=== PATIENT | female | born 1970 | race Caucasian/White ===

== ENCOUNTER 2016-12-07 08:47 | Inpatient (IN) | payer BC ==
[2016-11-15 13:11] LABS: BASO % 0.9 %; BASO ABS # 0.05 K/uL (0-0.2); COMPLETE YES; EOS % 3.3 %; HEMATOCRIT 41.1 % (37-47); IG% 0.2 %; LYMPH % 27.5 %; MEAN CELL VOLUME 86.5 fL (80-100); MEAN CORPUSCULAR HEMOGLOBIN 29.5 pg (25-34); MEAN CORPUSCULAR HGB CONC 34.1 g/dl (32-36); MEAN PLATELET VOLUME 10.1 fL (7.4-10.4); MONO % 6.1 %; PLATELET COUNT 209 K/uL (130-400); RED BLOOD COUNT 4.75 M/uL (4.2-5.4); WHITE BLOOD COUNT 5.45 K/uL (4.8-10.8)
[2016-11-15 13:26] LABS: URINE APPEARANCE CLEAR (CLEAR); URINE BILIRUBIN NEG (NEG); URINE COLOR YELLOW; URINE NITRITE NEG (NEG); URINE PH 5.5 (4.5-7.5); URINE SPECIFIC GRAVITY 1.006 (1.000-1.030); UROBILINOGEN NEG (NEG)
[2016-11-15 13:31] LABS: PREG INTERNAL NEGATIVE QC NEG CLEAR BACKGROUND; PREG INTERNAL POSITIVE QC POS CONTROL LINE
[2016-11-15 13:33] LABS: MANUAL MICROSCOPIC REQUIRED? NO; REVIEW REQ? NO
[2016-11-27 09:15] VITALS: BMI 36.0
--- NOTE | 2016-12-06 11:20 | HISTORY & PHYSICAL EXAMINATION ---
DATE OF ADMISSION: 12/07/2016 SUBJECTIVE CHIEF COMPLAINT: She presents with back pain and right leg radiculopathy. HISTORY OF PRESENT ILLNESS: Leny is a very pleasant 46-year-old female who complains of low back pain and right leg numbness and tingling. This has been going on for quite a while now. We have tried conservative treatment and physical therapy, which have failed. She has also had some spinal injections and ablations which have failed also. What bothers her the most is sitting for any length of time. She loses feeling in both of her legs, especially her right leg. She is to the point where she wants to get something done surgically. MEDICAL HISTORY: Negative for any significant disease. PAST SURGICAL HISTORY: She had a total hysterectomy in 2004, breast reduction in 1997. ALLERGIES TO MEDICATIONS: INCLUDE PENICILLIN, SULFA DRUGS AND KEFLEX. CURRENT MEDICATIONS: List includes Topamax and gabapentin. FAMILY MEDICAL HISTORY: Negative heart disease, diabetes, cancer, blood clots, PEs. SOCIAL HISTORY: She is , drinks 1-2 drinks a week. No tobacco use. Moderately active lifestyle. REVIEW OF SYSTEMS: Musculoskeletal positive for joint pain. All other review of systems were negative per the patient intake form. PHYSICAL EXAMINATION: CONSTITUTIONAL: Alert and oriented x3. She is 5 foot 5, 224 pounds. She is 46 years of age. PSYCHIATRIC: Mentation is normal and does not appear to be depression. HEAD, EYES, EARS, NOSE, AND THROAT: Examination is normal. RESPIRATORY: Equal and bilateral breath sounds. LUNGS: Clear to auscultation. GASTROINTESTINAL: Abdomen is soft, nontender, no organomegaly percussed or palpated. CARDIOVASCULAR EXAMINATION: Normal. NEUROLOGICAL: Neurologically intact. Strength is 5/5 in the lower extremities. Good sensation and motor ability in the lower extremities. INTEGUMENTARY: Skin integumentary is intact. MUSCULOSKELETAL: Decreased range of motion with flexion and extension of her lumbar spine, pain with percussion to the right and to the left of midline. Plan is anatomically located along the L5-S1 nerve root distribution. DIAGNOSTIC TESTS: Plain x-rays demonstrated severely degenerative disc disease L5-S1. All other segments appear to be spared. MRI demonstrated similar pathology with nerve root irritation at the L5-S1 level. ASSESSMENT AND DIAGNOSES: Degenerative change in the lumbar spine, discogenic issues at L5-S1. PLAN: At this time, we have offered her surgery. Surgery choice is posterior lumbar interbody fusion at L5-S1. We discussed the procedure, recovery times and risks as well. She is in full understanding and agreeable with that. We did provide her with a back brace for postop. Also provided her with pain medication after she is discharged from the hospital. We will follow her up in our office in approximately 10-14 days postop for incision evaluation, suture removal and evaluation.
[~2016-12-07] VITALS: Ht 165.1 cm; Wt 100.5 kg
[2016-12-07] VITALS (7 sets, daily range): BP systolic 100–120; BP diastolic 65–81; PULSE 64–81; TEMP 36.5–37; O2SAT 96–99; Ht 165.1 cm; Wt 100.5 kg
[~2016-12-07 08:47] MED LIST: ATROPINE SULFATE 0.1 MG/ML 5ML SYR IV PRN; CLINDAMYCIN 600 MG/54 ML D5W IV SCH; DICL50TA3 PO; EpHEDrine SULFATE INJ 50 MG/ML AMP IV PRN; FENTANYL CITRATE INJ 50 MCG/1 ML 2 ML VIAL IV PRN; HYDROmorphone INJ 1 MG/ML SYR IV PRN; LACTATED RINGER'S 1000ML 1,000 ML IV SCH; MAGN400T6 PO; ONDANSETRON INJ 2 MG/ML 2 ML VIAL IV PRN; SODIUM CHLORIDE 0.9% 1000ML 1,000 ML IV SCH; TOPI50TA16 PO; TRAM-10 PO
[2016-12-07] MEDS ORDERED: MIDAZOLAM HCL 1 MG/ML 2ML VIAL ONE (09:43)
[2016-12-07] MEDS ORDERED: ONDANSETRON INJ 2 MG/ML 2 ML VIAL ONE ×2 (09:43→12:25)
[2016-12-07] MEDS ORDERED: ROCURONIUM BROMIDE 10 MG/ML 5 ML VIAL ONE ×2 (09:43→12:04)
[2016-12-07] MEDS ORDERED: DEXAMETHASONE SOD INJ 4 MG/ML VIAL ONE (09:43)
[2016-12-07] MEDS ORDERED: GLYCOPYRROLATE INJ 0.2 MG/ML VIAL ONE (09:43)
[2016-12-07] MEDS ORDERED: LIDOCAINE HCL 2% 2 ML VIAL (20MG/ML) ONE (09:43)
[2016-12-07] MEDS ORDERED: PROPOFOL IV EMULSION 10 MG/ML 20 ML VIAL IV ONE (09:43)
[2016-12-07] MEDS ORDERED: NEOSTIGMINE METHYLSULFATE 5 MG/5 ML SYR ONE (09:43)
[2016-12-07] MEDS ORDERED: FENTANYL CITRATE INJ 50 MCG/1 ML 2 ML VIAL ONE ×2 (09:43→14:08)
[2016-12-07] MEDS ORDERED: CEFAZOLIN SOD 1 GM VIAL ONE (09:44)
[2016-12-07] MEDS ORDERED: SCOPOLAMINE 1.5 MG TDSY TD ONE (10:04)
[2016-12-07] MEDS ORDERED: NURSING VERBAL MED ORDER ONE (10:15)
[2016-12-07] MEDS ORDERED: GELATIN SPONGE SZ 100 ONE ×3 (10:59→12:38)
[2016-12-07] MEDS ORDERED: THROMBIN FOR SOLN 20000 UNIT KIT ONE ×2 (10:59→11:53)
[2016-12-07] MEDS ORDERED: BUPIVACAINE/EPINEPHRINE 0.5% MPF 1:200,000 30 ML VIAL ONE (10:59)
[2016-12-07] MEDS ORDERED: BACITRACIN 50000 UNIT VIAL ONE (11:00)
[2016-12-07] MEDS ORDERED: VANCOMYCIN HCL 1000MG/20ML VIAL ONE (11:00)
[2016-12-07] MEDS ORDERED: HYDROmorphone INJ 2 MG/ML SYR/VIAL ONE (11:07)
--- NOTE | 2016-12-07 11:10 | History & Physical Bridge Note ---
H&P Re-Evaluation Bridge Note: I have examined the patient, reviewed the History & Physical and in the interval since the performance of the History & Physical I have noted the following changes of clinical significance: No changes noted
[2016-12-07] MEDS ORDERED: METOCLOPRAMIDE HCL INJ 5 MG/ML 2 ML VIAL ONE (11:35)
[2016-12-07] MEDS ORDERED: DiphenhydrAMINE HCL 50 MG/ML VIAL ONE (12:25)
--- NOTE | 2016-12-07 13:44 | DIAGNOSTIC IMAGING REPORT ---
INTRAOPERATIVE RADIOGRAPH CLINICAL HISTORY: L5-S1 spinal fusion. Fluoroscopy time: 9 seconds. FINDINGS: A single spot fluoroscopic view of the lumbar spine is presented. There is evidence of discectomy at L5-S1 with laminectomy and posterior fusion at this level. Interpedicular screws are present at both levels. The orthopedic hardware appears intact. IMPRESSION: Intraoperative image from L5 -S1 spinal fusion as above. Electronically signed by: Bravo Corrales M.D. 12/07/2016 1:43 PM Dictated Date/Time: 12/07/2016 1:42 PM
[2016-12-07] MEDS ORDERED: SODIUM CHLORIDE 0.9% 1000ML 1,000 ML IV SCH (13:53)
--- NOTE | 2016-12-07 13:59 | [facility] Post Operative Brief Note ---
Immediate Operative Summary Operative Date Dec 07, 2016. Pre-Operative Diagnosis Degenerative change in the lumbar spine, discogenic issues at L5-S1 Post-Operative Diagnosis Same as pre-operative diagnosis Procedure(s) Performed L5-S1 Decompression, Posterior Spinal Fusion, Instrumentation, Interbody Fusion With Application of Interbody Cage at L5-S1 Surgeon Dr. Stanley Manjarrez Senior Instructional Designer Surgeon(s) Arnel Zhang PA-C Estimated Blood Loss 500ml Findings degenerative L5-S1 spinal segment Specimens None per surgeon Complication(s) None Disposition Recovery Room / PACU
[2016-12-07] MEDS ORDERED: ONDANSETRON INJ 2 MG/ML 2 ML VIAL IV PRN (14:00)
[2016-12-07] MEDS ORDERED: NALOXONE HCL 0.4 MG/1 ML VIAL/CARP IV PRN (14:00)
[2016-12-07] MEDS ORDERED: LORAZEPAM 1 MG TAB PO PRN (14:00)
[2016-12-07] MEDS ORDERED: ACETAMINOPHEN 325 MG TAB PO PRN (14:00)
[2016-12-07] MEDS ORDERED: METOCLOPRAMIDE HCL INJ 5 MG/ML 2 ML VIAL IV PRN (14:00)
[2016-12-07] MEDS ORDERED: MAGNESIUM HYDROXIDE SUSP 30 ML UDC PO PRN (14:00)
[2016-12-07] MEDS ORDERED: LORAZEPAM INJ 1 MG in SYRINGE 0 ML IV PRN (14:00)
[2016-12-07] MEDS ORDERED: PROMETHAZINE HCL INJ 12.5 MG in SODIUM CHLORIDE 0.9% 50ML 50 ML IV PRN (14:00)
[2016-12-07] MEDS ORDERED: LABETALOL HCL IV 5 MG/ML 20ML ONE (14:09)
[2016-12-07] MEDS ORDERED: HYDROmorphone HCL 0.5MG/ML 50 ML CASSETTE ONE (14:15)
--- NOTE | 2016-12-07 14:22 | OPERATIVE REPORT ---
DATE OF OPERATION: 12/07/2016 PREOPERATIVE DIAGNOSIS: Degenerative segment lumbar spine L5-S1. POSTOPERATIVE DIAGNOSIS: Same. PROCEDURE: Included a lumbar spine laminectomy, discectomy at L5-S1, posterolateral interbody fusion L5-S1, posterolateral fusion L5-S1, complete discectomy L5-S1 and segmental pedicle screw instrumentation L5-S1. SURGEON: Dr. Manjarrez. CHAPLAIN: Arnel Zhang PA-C. COMPLICATIONS: Zero. BLOOD LOSS: 500 mL estimate. OPERATION AND FINDINGS: PROCEDURE: The patient was taken to the operating room, a general intubated anesthetic provided to the patient, placed prone, scrubbed, prepped, draped sterile. We commenced with surgery. We made a skin incision from 4 to the S2, S3 segments. We dissected the soft tissue down to the spinous processes to be back of the lamina. We got out over the transverse processes of L5 and the sacral ala, put in a deep self-retaining retractor. We verified the positioning with C-arm imaging. We commenced with surgery on the decompression aspect, essentially a complete laminectomy at 5, and partial of the sacrum. Did good foraminotomies, partial facetectomies. I was then able to safely get pedicle screws in the sacrum, 5 bilaterally, left and right. They were by the [place]. We then were able to retract the dura over a medial direction on both sides and get bilateral cages placed, packed with bone allograft. I first did a complete discectomy left and right using pituitaries curettes really cleaning out the disc interspace. Interspace was also then packed with the patient's own bone for autograft. We selected the implant, placed this into the L5-S1 interval. We were pleased with the church of disc height. We locked down the pedicle screw construct. We irrigated and closed in layers over Hemovac drain and ana on the skin, sterile dressing was applied. The patient returned to recovery room satisfactory stable condition. There were no apparent complications with the procedure. Sponge and needle count correct at the close. I attest to the content of the Intraoperative Record and any orders documented therein. Any exceptio ns are noted below.
--- NOTE | 2016-12-07 14:48 | Anesthesiology Progress Note ---
Anesthesia Post Op Note Date & Time Dec 07, 2016 at 14:48 Vital Signs Pain Intensity: 4 Vital Signs Past 12 Hours Date Time Temp Pulse Resp B/P Pulse Ox O2 Delivery O2 Flow Rate FiO2 12/07/16 14:40 60 16 115/72 98 Nasal Cannula 3 12/07/16 14:30 59 16 110/68 98 Mask 5 12/07/16 14:20 70 16 129/69 100 Mask 10 12/07/16 14:10 70 16 133/60 100 Mask 10 12/07/16 14:04 36.0 76 16 120/85 99 Mask 10 12/07/16 09:10 36.8 80 18 120/81 97 Room Air Notes Mental Status: alert / awake / arousable, participated in evaluation Pt Amnestic to Procedure: Yes Nausea / Vomiting: adequately controlled Pain: adequately controlled Airway Patency, RR, SpO2: stable & adequate BP & HR: stable & adequate Hydration State: stable & adequate Anesthetic Complications: no major complications apparent
[2016-12-07] MEDS: HYDROmorphone HCL 0.5MG/ML 50 ML CASSETTE IV PRN ×2 (15:58→23:13)
[2016-12-07] MEDS: CHECK SCOPOLAMINE PATCH PLACEMENT SCH (16:18)
[2016-12-07] MEDS: KETOROLAC TROMETHAMINE 30 MG/ML VIAL IV SCH ×2 (18:37→23:31)
[2016-12-07] MEDS: SODIUM CHLORIDE 0.9% 1000ML 1,000 ML IV SCH (18:40)
[2016-12-07] MEDS: DEXAMETHASONE INJ 10 MG in SYRINGE 0 ML IV SCH (18:42)
[2016-12-07] MEDS: CLINDAMYCIN IV 600 MG in DEXTROSE 5% ADD-VANTAGE 50ML 50 ML IV SCH (19:54)
[2016-12-07] MEDS: MAGNESIUM OXIDE 400 MG TAB PO SCH (21:12)
[2016-12-07] MEDS: TOPIRAMATE 25 MG TAB PO SCH (21:12)
[2016-12-08] VITALS (7 sets, daily range): BP systolic 90–120; BP diastolic 51–77; PULSE 72–90; TEMP 36.6–37; O2SAT 94–100
[2016-12-08] MEDS: SODIUM CHLORIDE 0.9% 1000ML 1,000 ML IV SCH (01:56)
[2016-12-08] MEDS: DEXAMETHASONE INJ 10 MG in SYRINGE 0 ML IV SCH ×3 (01:56→17:54)
[2016-12-08] MEDS: CLINDAMYCIN IV 600 MG in DEXTROSE 5% ADD-VANTAGE 50ML 50 ML IV SCH (03:52)
[2016-12-08] MEDS: KETOROLAC TROMETHAMINE 30 MG/ML VIAL IV SCH ×3 (05:57→17:54)
[2016-12-08] MEDS ORDERED: BISACODYL 10 MG SUPP PR PRN (06:00)
[2016-12-08] MEDS ORDERED: BISACODYL 5 MG TABEC PO PRN (06:00)
[2016-12-08] MEDS ORDERED: DC PCA SCH (06:00)
[2016-12-08] MEDS ORDERED: NURSING DECISION MEDICATION ORDER SCH (06:30)
--- NOTE | 2016-12-08 07:35 | Discharge Instructions ---
Discharge Instructions Admission Reason for Admission: Lumbar Intervertebral Disc Disorder W/Myelopathy Discharge Discharge Diagnosis / Problem: stenosis Discharge Goals Goal(s): Improve function Activity Recommendations Activity Limitations: as noted below Lifting Limitations: gradually increase as tolerated Exercise/Sports Limitations: until after follow-up appointment May Resume Sexual Activity: after follow-up appointment Shower/Bathe: keep incision dry Driving or Machine Use: . Instructions / Follow-Up Instructions / Follow-Up MEDICATIONS: Please take your prescriptions as instructed at your pre-op appointment. SPECIAL CARE: The following information is intended to answer some of the common questions and concerns regarding your surgery. Each patient is an individual and receives individual counselling throughout the course of treatment, from diagnosis to surgery all the way through recovery. What follows is not an exhaustive list, but should be a useful guide to some of the common questions and concerns patients have regarding their surgeries. These are not provided to keep you from calling us; rather, they give you something accurate and concrete to reference as you recover from your procedure. If you need us, we are available to you. As always, if you are not sure about something, call us at [phone]. MEDICAL EMERGENCIES: For these conditions, call 911 or go to your local hospital-based Emergency Department - not [facility] or equivalent. * Paralysis * Severe chest pain or difficulty breathing * Swelling or redness of either leg Spine procedures can be rather complex and though complications are rare, they do occur. In such cases, effective advice regarding emergency situations cannot always be addressed over the telephone. You may be referred to the emergency department for more effective management of your problem. Activity Limitations: It is important to give your body time to heal, so please limit your activities : * In general, don't do anything that moves your spine too much. You should avoid contact sports, twisting or heavy lifting while you recover. * 5-10 pounds is all you should attempt to lift. * You should not plan on driving for approximately 3 weeks and you should avoid traveling more than 30-45 minutes at a time. Longer trips should be broken down with walking breaks spaced appropriately. * Physical therapy is not usually required. * Walking and good posture practices will help you recover and regain your function. * Avoid straining or sudden changes in position. * In general, the goal is to take it easy and recover. Don't cause any new problems. Just relax. Showers: * Do not take a bath, use a Jacuzzi or hot tub or otherwise submerge your incision. * It is usually safe to take a shower 4-5 days after your surgery. * Your incision does not require any special creams or ointments. * Simply clean it with soap and water, dry and re-dress with a clean bandage afterwards. Incision: * Keep incision clean, dry and protected until your first follow-up appointment. * Some amount of drainage and redness is normal. Any drainage should be fairly clear and not have a foul odor. * If you feel anything is wrong or you have excessive drainage, please call us. * Your stitches and ana will be removed 10-14 days after your surgery. At the time of your first post-op visit. * Neck surgeries are typically closed with a suture underneath the skin. The steri-strips over the incision should be maintained until we see you in the office. Bracing: * You may be provided with a back or neck brace to encourage good posture and prevent injury. It will remind you not to do too much as you heal and will alert others to the fact that you have had a surgery. * Back braces may be removed for showers and when you are resting at home. They must be worn when you are walking around for any period of time or for travel. * For neck surgery, you will likely be provided with two cervical collars. The soft collar ([place] or foam rubber) is worn most commonly throughout the day and while sleeping. The plastic collar (provided at the hospital) is for showering/bathing. * Except while eating, collars should remain in place. More specifically, bracing is provided for a purpose and should be worn. * Please obtain your brace or collars prior to your operation and bring them to the hospital with you on the day of surgery. * You should also bring your collars to your post-op appointment with Dr. Manjarrez. You should always take good care of your body and practice healthy habits, especially following surgery. You should: * Follow your doctor's treatment plan * Sit and stand properly with good posture (ears over shoulders, shoulders over hips) Don't slouch * Learn to lift correctly * Exercise regularly (low-impact aerobic exercise is especially good, but check with your doctor first) * Generally, be up and walking for 5-10 minutes at a time at least 3-4 times per day from the day you get home * Increasing walking to tolerance until you can walk for 20-30 minutes at a time * Attain and maintain a healthy body weight * Eat healthy foods ( a well-balanced, low-fat diet rich in fruits and vegetables) and get enough calcium * Avoid excessive use of alcohol When to call our office - If you notice any of the following: * Increased pain not relieve by pain medicine * Fevers greater then 100 degrees F, chills or flu symptoms * Increased redness around incision * Drainage from the incision that is not clear * Any foul smelling drainage * Swelling or fluid collection beneath the skin Miscellaneous: * In the hospital, you may be given a walker or cane for support while walking. These are temporary needs and are intended to prevent injuries due to falls. You may discontinue them when you feel strong and steady enough on your feet. * Sleep in a comfortable position. We find that many patients find a lounge chair or recliner with several pillows to be beneficial in the early post-operative period. * The support stockings should be used for 7-10 days and may be discontinued when you are back to walking more and conducting usual household activities. No problem is insignificant. We are here to help you and get you well. Contact us at [phone]. Definitions: Foraminotomy: If part of the disc or a bone spur (osteophyte) is pressing on a nerve as it leaves the vertebra (through an exit called the foramen), a foraminotomy may be done. Otomy means "to make an opening." A foraminotomy is making the opening of the foramen larger, so the nerve can exit without being compressed. Laminotomy: Similar to the foraminotomy, a laminotomy makes a larger opening, this time in your bony plate protecting your spinal canal and spinal cord (the lamina). The lamina may be pressing on your nerve, so the surgeon may make more room for the nerves using a laminotomy. Laminectomy: Sometimes, a laminotomy is not sufficient. The surgeon may need to remove all or part of the lamina. This procedure is called a laminectomy. This can often be done at many levels without any harmful effects. Current Hospital Diet Patient's current hospital diet: Regular Diet Discharge Diet Recommended Diet: Regular Diet ( ) Fluid Restriction: 2000 ml (8 cups) Procedures Procedures Performed: L5-S1 Decompression, Posterior Spinal Fusion, Instrumentation, Interbody Fusion With Application of Interbody Cage at L5-S1 Pending Studies Studies pending at discharge: no Medical Emergencies . Who to Call and When: Medical Emergencies: If at any time you feel your situation is an emergency, please call 911 immediately. . Non-Emergent Contact Non-Emergency issues call your: Surgeon Call Non-Emergent contact if: your pain is worsening, you have any medication questions . "Provider Documentation" section prepared by Stanley Manjarrez. VTE Core Measure Inpt VTE Proph given/why not?: Treatment not indicated
--- NOTE | 2016-12-08 07:55 | PROGRESS NOTE ---
DATE: 12/08/2016 SUBJECTIVE: Minimal complaints of pain. Alert, oriented. No chest pain or shortness of breath. PHYSICAL EXAMINATION: 36.8 oral temperature. Neurologically intact. LABORATORY DATA: Hemoglobin 14. ASSESSMENT: Status post PLIF lumbar spine, posterior lumbar interbody fusion, doing well, short run. DISPOSITION: Includes instructions, precautions, and education. Up and ambulatory today. I anticipate discharge home tomorrow.
[2016-12-08] MEDS ORDERED: HYDROmorphone INJ 1 MG/ML SYR IV PRN (08:00)
[2016-12-08] MEDS ORDERED: OXYCODONE/ACETAMINOPHEN 5-325 TAB PO PRN (08:00)
[2016-12-08] MEDS ORDERED: HYDROmorphone INJ 2 MG/ML SYR/VIAL IV PRN (08:00)
[2016-12-08] MEDS: CHECK SCOPOLAMINE PATCH PLACEMENT SCH ×4 (08:13→23:39)
--- NOTE | 2016-12-08 08:25 | Anesthesiology Progress Note ---
Anesthesia Post Op Note Date & Time Dec 08, 2016 at 08:24 Vital Signs Pain Intensity: 2.0 Vital Signs Past 12 Hours Date Time Temp Pulse Resp B/P Pulse Ox O2 Delivery O2 Flow Rate FiO2 12/08/16 03:30 36.8 88 16 93/57 94 Room Air 12/08/16 00:00 Nasal Cannula 2.0 12/07/16 23:31 36.9 81 16 107/68 97 Nasal Cannula 2.0 Notes Mental Status: alert / awake / arousable, participated in evaluation Pt Amnestic to Procedure: Yes Nausea / Vomiting: adequately controlled Pain: adequately controlled Airway Patency, RR, SpO2: stable & adequate BP & HR: stable & adequate Hydration State: stable & adequate Anesthetic Complications: no major complications apparent
[2016-12-08] MEDS: OXYCODONE/ACETAMINOPHEN 5-325 TAB PO PRN ×3 (08:47→21:06)
[2016-12-08] MEDS: POLYETHYLENE (MIRALAX) 17 GM PACK PO SCH (08:47)
[2016-12-08] MEDS: MAGNESIUM OXIDE 400 MG TAB PO SCH ×2 (08:48→21:05)
[2016-12-08] MEDS: TOPIRAMATE 25 MG TAB PO SCH (21:07)
[2016-12-09] MEDS: DEXAMETHASONE INJ 10 MG in SYRINGE 0 ML IV SCH (02:10)
[2016-12-09] MEDS: OXYCODONE/ACETAMINOPHEN 5-325 TAB PO PRN ×2 (04:21→08:24)
[2016-12-09] MEDS: CHECK SCOPOLAMINE PATCH PLACEMENT SCH (08:04)
[2016-12-09] MEDS: POLYETHYLENE (MIRALAX) 17 GM PACK PO SCH (08:21)
[2016-12-09] MEDS: MAGNESIUM OXIDE 400 MG TAB PO SCH (08:22)
[2016-12-09 08:28] VITALS: BP 109/72; PULSE 71; TEMP 36.8; O2SAT 93
[2016-12-09] MEDS ORDERED: OXYC-57 PO (09:38)
[2016-12-09 09:41] VITALS: BP 109/72; PULSE 71; TEMP 36.8; O2SAT 93
--- NOTE | 2016-12-09 09:47 | DISCHARGE SUMMARY ---
DATE OF DISCHARGE: 12/09/2016. SUBJECTIVE: Minimal complaints of pain. Alert, oriented, no chest pain, shortness of breath, no neurological deficit. Pain controlled with Percocet. ASSESSMENT: Status post lumbar spinal fusion. DISPOSITION: Dressing change, pull drain today. Prescription for Percocet on her chart. Followup in 10 days. Instruction precautions provided on 2 different episodes. Will see her back in 10 days. She is off work.
== END 2016-12-09 11:40 | disposition home or self-care (01) | DRG 460 ==
LOC: ENRESERVTM → ENRESERVDT → C.ACU 08:47 → C.3E 11:00
PROVIDERS: ADMIT Orthopaedic Surgery Orthopaedic Surgery of the Spine; ATTEND Orthopaedic Surgery Orthopaedic Surgery of the Spine
PROC: 0SG3071 Fusion of Lumbosacral Joint with Autologous Tissue Substitute, Posterior Approach, Posterior Column, Open Approach (ICD-10-PCS; principal; 2016-12-07 10:00)
PROC: 0SG30AJ Fusion of Lumbosacral Joint with Interbody Fusion Device, Posterior Approach, Anterior Column, Open Approach (ICD-10-PCS; principal; 2016-12-07 10:00)
PROC: 0ST40ZZ Resection of Lumbosacral Disc, Open Approach (ICD-10-PCS; principal; 2016-12-07 10:00)
DX: M51.17 Intervertebral disc disorders with radiculopathy, lumbosacral region (principal); G43.909 Migraine, unspecified, not intractable, without status migrainosus; E66.9 Obesity, unspecified; Z68.37 Body mass index [BMI] 37.0-37.9, adult; Z79.83 Long term (current) use of bisphosphonates; Z79.891 Long term (current) use of opiate analgesic; Z79.899 Other long term (current) drug therapy

== ENCOUNTER 2018-01-24 15:58 | Emergency (ER) | payer BC ==
[~2018-01-24] VITALS: Ht 165.1 cm; Wt 110.2 kg
[~2018-01-24 15:58] MED LIST changes: -ATROPINE SULFATE 0.1 MG/ML 5ML SYR IV PRN; -CLINDAMYCIN 600 MG/54 ML D5W IV SCH; -EpHEDrine SULFATE INJ 50 MG/ML AMP IV PRN; -FENTANYL CITRATE INJ 50 MCG/1 ML 2 ML VIAL IV PRN; -HYDROmorphone INJ 1 MG/ML SYR IV PRN; -LACTATED RINGER'S 1000ML 1,000 ML IV SCH; -ONDANSETRON INJ 2 MG/ML 2 ML VIAL IV PRN; -SODIUM CHLORIDE 0.9% 1000ML 1,000 ML IV SCH
[2018-01-24 16:04] VITALS: TEMP 36.6
[2018-01-24 16:20] VITALS: Ht 165.1 cm; Wt 110.2 kg
[2018-01-24] MEDS ORDERED: METOCLOPRAMIDE HCL INJ 5 MG/ML 2 ML VIAL IV. STA (16:27)
[2018-01-24] MEDS ORDERED: SODIUM CHLORIDE 0.9% 1000ML 1,000 ML IV STA (16:27)
[2018-01-24] MEDS ORDERED: DiphenhydrAMINE HCL 50 MG/ML VIAL IV STA (16:27)
[2018-01-24] MEDS ORDERED: SODIUM CHLORIDE 0.9% 1000ML 1,000 ML IV SCH (16:27)
[2018-01-24 16:40] VITALS: O2SAT 97
[2018-01-24 16:40] LABS: BASO % 0.6 %; BASO ABS # 0.04 K/uL (0-0.2); EOS % 1.7 %; EOS ABS # 0.12 K/uL (0-0.5); HEMATOCRIT 41.5 % (37-47); HEMOGLOBIN 13.7 g/dL (12.0-16.0); IG# 0.01 K/uL (0.00-0.02); LYMPH % 32.9 %; LYMPH ABS # 2.33 K/uL (1.2-3.4); MEAN CELL VOLUME 85.4 fL (80-100); MEAN CORPUSCULAR HEMOGLOBIN 28.2 pg (25-34); MEAN PLATELET VOLUME 9.7 fL (7.4-10.4); MONO % 6.6 %; MONO ABS # 0.47 K/uL (0.11-0.59); NEUT % 58.1 %; NEUT ABS # 4.11 K/uL (1.4-6.5); PLATELET COUNT 202 K/uL (130-400); RED CELL DISTRIBUTION WIDTH CV 14.6 % (11.5-14.5); RED CELL DISTRIBUTION WIDTH SD 45.5 fL (36.4-46.3); WHITE BLOOD COUNT 7.08 K/uL (4.8-10.8)
[2018-01-24 16:43] LABS: ISTAT CREATININE 0.9 mg/dl (0.6-1.3); ISTAT IONIZED CALCIUM 1.12 mmol/l (1.12-1.32); ISTAT POTASSIUM 3.7 mEq/L (3.3-5.0)
--- NOTE | 2018-01-24 16:43 | DIAGNOSTIC IMAGING REPORT ---
CT SCAN OF THE BRAIN WITHOUT IV CONTRAST CLINICAL HISTORY: Strokelike symptoms. COMPARISON STUDY: MRI of the brain dated 05/08/2006. TECHNIQUE: Unenhanced axial CT scan of the brain is performed from the vertex to the skull base. A dose lowering technique was utilized adhering to the principles of ALARA. CT DOSE: 720.95 mGycm FINDINGS: Brain parenchyma: A small chronic lacunar infarct is noted in the left cerebellar hemisphere. There is no hemorrhage, mass effect, or evidence of acute territorial ischemia by CT criteria. [place]-white matter is preserved. No extra-axial fluid collection is seen. Ventricles, sulci, cisterns: Normal in configuration. Intracranial vasculature: The visualized intracranial vasculature at the skull base is normal in appearance. Calvarium: Unremarkable. Sinuses and mastoids: The visualized paranasal sinuses are clear. The mastoid air cells are well pneumatized. Orbits: The bony orbits are grossly intact. IMPRESSION: 1. There is no hemorrhage, mass effect, or evidence of acute territorial ischemia by CT criteria. 2. A small chronic lacunar infarct is noted in the left cerebellar hemisphere. Electronically signed by: Bravo Corrales M.D. 01/24/2018 4:42 PM Dictated Date/Time: 01/24/2018 4:36 PM
[2018-01-24 16:49] LABS: INR 0.9 (0.9-1.1)
[2018-01-24 17:05] LABS: BLOOD UREA NITROGEN 15 mg/dl (7-18); CALCIUM 8.8 mg/dl (8.5-10.1); CARBON DIOXIDE 25 mmol/L (21-32); CREATININE 0.86 mg/dl (0.60-1.20); GLUCOSE 83 mg/dl (70-99); POTASSIUM 3.6 mmol/L (3.5-5.1); SODIUM 139 mmol/L (136-145)
[2018-01-24 17:10] LABS: CKMB 0.8 ng/ml (0.5-3.6)
--- NOTE | 2018-01-24 17:56 | EMERGENCY ROOM VISIT NOTE ---
History Report prepared by Skylar: Aj Yadav Under the Supervision of: Dr. Julio Hughes M.D. First contact with patient: 16:07 Chief Complaint: NEURO SYMPTOMS Stated Complaint: RT HAND UNABLE TO USE, RT SIDE NUMBNESS Nursing Triage Summary: Patient ambulatory to triage with a slow and limping gait, states "I was writing on a tablet around 1300, my right hand flipped over and I lost control of it. My right arm went numb. Then my right leg got really numb. They are both really heavy. Then I got a really bad headache and sleepy. My neck is bugging me a little bit too. It feels numb on the entire right side of my body. I feel like I can talk okay but I am struggling to make sense." PMH: Migraines, complex migraines. History of Present Illness The patient is a 47 year old white female with a past medical history of lumbar stenosis, back surgery, and breast reduction surgery who presents to the Emergency Room with concerns over sudden onset weakness in her right side that onset at 1315, 3 hours ago. The patient states that she was using her right hand to write at work when the hand "went limp and flopped over." The patient states that shortly after this occurred her right leg went numb as well. She also notes some "general issues trying to speak and think." The patient states that the weakness in her right side is worse now She can move the right arm and right leg, but it feels like "there are bags of sugar" on the extremities. She described an unusual irregularity in her vision as seeing "a dark halo around the outside" of her visual field, and she does have a headache. The patient did note that she had an episode of neuro symptoms 16 years ago secondary to a complicated migraine. Source of History: patient Onset: 3 hours ago Position: arm (right), leg (right) Quality: numbness, other (weakness) Timing: worsening, other (Sudden onset) Associated Symptoms: + headache Note: Vision irregularities Review of Systems See HPI for pertinent positives and negatives. A total of ten systems were reviewed and were otherwise negative. Past Medical & Surgical Medical Problems: (1) Lumbar stenosis Family History Diabetes mellitus Heart disease Social History Smoking Status: Never Smoker Housing Status: lives with family Occupation Status: employed Current/Historical Medications No Active Prescriptions or Reported Meds Allergies Coded Allergies: Cephalosporins (Verified Allergy, Severe, KEFLEX=SWELLING, 01/24/18) Penicillins (Verified Allergy, Severe, AMOXICILLIN=SWELLING, 01/24/18) SWELLING Physical Exam Vital Signs Date Time Temp Pulse Resp B/P (MAP) Pulse Ox O2 Delivery O2 Flow Rate FiO2 01/24/18 18:39 78 20 124/80 97 Room Air 01/24/18 18:03 145/83 01/24/18 17:31 122/89 01/24/18 17:30 89 17 96 Room Air 01/24/18 17:01 130/90 01/24/18 17:00 75 24 99 Room Air 01/24/18 16:55 80 16 150/99 97 Room Air 01/24/18 16:40 97 Room Air 01/24/18 16:22 81 01/24/18 16:04 36.6 74 20 137/84 98 Room Air Physical Exam GENERAL: Awake, alert, well-appearing, NAD HENT: Normocephalic, atraumatic. EYES: Normal conjunctiva. Sclera non-icteric. NECK: Supple. No nuchal rigidity. FROM. RESPIRATORY: CTAB, no rhonchi, wheezing, crackles CARDIAC: RRR, no MRG ABDOMEN: Soft, NTND, BS+ MSK: No chest wall TTP, no LE edema NEURO: CN 2-12 intact, 4/5 strength with flexion of the RUE and RLE, decreased sensation of the right face, no facial droop no dysmetria, no drift, good finger to nose, no sensory deficits. Finger count grossly normal. PERRL. SKIN: No rash or jaundice noted. Medical Decision & Procedures ER Provider Diagnostic Interpretation: Radiology results as stated below per my review and radiologist interpretation: CT SCAN OF THE BRAIN WITHOUT IV CONTRAST CLINICAL HISTORY: Strokelike symptoms. COMPARISON STUDY: MRI of the brain dated 05/08/2006. TECHNIQUE: Unenhanced axial CT scan of the brain is performed from the vertex to the skull base. A dose lowering technique was utilized adhering to the principles of ALARA. CT DOSE: 720.95 mGycm FINDINGS: Brain parenchyma: A small chronic lacunar infarct is noted in the left cerebellar hemisphere. There is no hemorrhage, mass effect, or evidence of acute territorial ischemia by CT criteria. [place]-white matter is preserved. No extra-axial fluid collection is seen. Ventricles, sulci, cisterns: Normal in configuration. Intracranial vasculature: The visualized intracranial vasculature at the skull base is normal in appearance. Calvarium: Unremarkable. Sinuses and mastoids: The visualized paranasal sinuses are clear. The mastoid air cells are well pneumatized. Orbits: The bony orbits are grossly intact. IMPRESSION: 1. There is no hemorrhage, mass effect, or evidence of acute territorial ischemia by CT criteria. 2. A small chronic lacunar infarct is noted in the left cerebellar hemisphere. Electronically signed by: Bravo Corrales M.D. 01/24/2018 4:42 PM Dictated Date/Time: 01/24/2018 4:36 PM Laboratory Results 01/24/18 16:20 Red Blood Count 4.86, Mean Corpuscular Volume 85.4, Mean Corpuscular Hemoglobin 28.2, Mean Corpuscular Hemoglobin Concent 33.0, Mean Platelet Volume 9.7, Neutrophils (%) (Auto) 58.1, Lymphocytes (%) (Auto) 32.9, Monocytes (%) (Auto) 6.6, Eosinophils (%) (Auto) 1.7, Basophils (%) (Auto) 0.6, Neutrophils # (Auto) 4.11, Lymphocytes # (Auto) 2.33, Monocytes # (Auto) 0.47, Eosinophils # (Auto) 0.12, Basophils # (Auto) 0.04 01/24/18 16:20 Test 01/24/18 16:20 01/24/18 16:32 01/24/18 16:46 White Blood Count 7.08 K/uL (4.8-10.8) Red Blood Count 4.86 M/uL (4.2-5.4) Hemoglobin 13.7 g/dL (12.0-16.0) Hematocrit 41.5 % (37-47) Mean Corpuscular Volume 85.4 fL (80-100) Mean Corpuscular Hemoglobin 28.2 pg (25-34) Mean Corpuscular Hemoglobin Concent 33.0 g/dl (32-36) Platelet Count 202 K/uL (130-400) Mean Platelet Volume 9.7 fL (7.4-10.4) Neutrophils (%) (Auto) 58.1 % Lymphocytes (%) (Auto) 32.9 % Monocytes (%) (Auto) 6.6 % Eosinophils (%) (Auto) 1.7 % Basophils (%) (Auto) 0.6 % Neutrophils # (Auto) 4.11 K/uL (1.4-6.5) Lymphocytes # (Auto) 2.33 K/uL (1.2-3.4) Monocytes # (Auto) 0.47 K/uL (0.11-0.59) Eosinophils # (Auto) 0.12 K/uL (0-0.5) Basophils # (Auto) 0.04 K/uL (0-0.2) RDW Standard Deviation 45.5 fL (36.4-46.3) RDW Coefficient of Variation 14.6 % (11.5-14.5) Immature Granulocyte % (Auto) 0.1 % Immature Granulocyte # (Auto) 0.01 K/uL (0.00-0.02) Prothrombin Time 9.3 SECONDS (9.0-12.0) Prothromb Time International Ratio 0.9 (0.9-1.1) Activated Partial Thromboplast Time 24.0 SECONDS (21.0-31.0) Partial Thromboplastin Ratio 0.9 Est Creatinine Clear Calc Drug Dose 99.9 ml/min Estimated GFR () 93.2 Estimated GFR (Non- 80.4 BUN/Creatinine Ratio 17.7 (10-20) Calcium Level 8.8 mg/dl (8.5-10.1) Magnesium Level 2.3 mg/dl (1.8-2.4) Total Creatine Kinase 68 U/L (26-192) Creatine Kinase MB 0.8 ng/ml (0.5-3.6) Creatine Kinase MB Ratio 1.2 (0-3.0) Troponin I < 0.015 ng/ml (0-0.045) Bedside Hemoglobin 13.6 g/dl (12.0-16.0) Bedside Hematocrit 40 % (37-47) Bedside Sodium 142 mEq/L (135-144) Bedside Potassium 3.7 mEq/L (3.3-5.0) Bedside Chloride 102 mEq/L (101-112) Bedside Total CO2 27 mEq/l (24-31) Anion Gap 17.0 mmol/L (16-25) Bedside Blood Urea Nitrogen 16 mg/dl (7-18) Bedside Creatinine 0.9 mg/dl (0.6-1.3) Bedside Glucose (other) 88 mg/dl (70-99) Bedside Ionized Calcium (Timothy) 1.12 mmol/l (1.12-1.32) Bedside Troponin I < 0.030 ng/ml (0-0.045) Bedside Prothrombin Time INR 1.0 (0.9-1.1) Laboratory results reviewed by me Medications Administered Medications (Trade) Dose Ordered Sig/Issa Route Start Time Stop Time Status Last Admin Dose Admin Metoclopramide HCl (Reglan Inj) 10 mg NOW STAT IV. 01/24/18 16:27 01/24/18 16:30 DC 01/24/18 17:17 10 MG Sodium Chloride 1,000 ml @ 999 mls/hr Q1H1M STAT IV 01/24/18 16:27 01/24/18 17:27 DC 01/24/18 17:17 999 MLS/HR Diphenhydramine HCl (Benadryl Inj) 25 mg NOW STAT IV 01/24/18 16:27 01/24/18 16:30 DC 01/24/18 17:17 25 MG ECG Per My Interpretation Indication: weakness Rate (beats per minute): 74 Rhythm: normal sinus Findings: other (No STS or TWI, normal intervals, normal axis) ED Course 1620: The patient was evaluated in room C7. A complete history and physical exam was performed. 1635: I discussed the case with Dr. Macario - [facility], he will call in and evaluate the patient via Telestroke. 1627: Ordered Benadryl 25 mg IV, Sodium Chloride 1000 mL @ 999 mL/hr IV, Reglan 10 mg IV, Sodium Chloride 1000 mL @ 50 mL/hr IV. 1711: I discussed the case again with Dr. Macario following his evaluation. He states no TPA as he discussed the risks/benefits with the patient and she declines treatment. This is likely a complex migraine and can go home once she feels better. 1826: I discussed the case with Dr. Otoniel Johsnon Neurolgoy. He will follow-up with the patient in the clinic. He also suggest starting the patient on Baby Aspirin. 1840: I reevaluated the patient. Discussed results and discharge instructions: She verbalized understanding and agreement. The patient is ready for discharge. Medical Decision The patient is a 47 year old white female with a past medical history of lumbar stenosis, back surgery, and breast reduction surgery who presents to the Emergency Room with concerns over sudden onset weakness in her right side that onset at 1315, 3 hours ago. Nursing notes reviewed. Ancillary studies and prior records reviewed. Differential diagnosis: Etiologies such as metabolic, infection, hypo/hyperglycemia, electrolyte abnormalities, cardiac sources, intracerebral event, toxicologic, neurologic, as well as others were entertained. Patient was seen and evaluated the bedside. Patient did have concerning signs and symptoms for possible stroke. However, this may be related to complicate migraine given that the patient has had a history of something similar but approximately 15 years ago. Patient is within a 3 hour window so a code stroke was called. Patient did have some deficits of the right upper and right lower extremity. Patient also had numbness in the right face and right upper and right lower extremity. Patient was not overtly hypotensive or hypertensive. Patient was a and O 3 with a GCS of 15. Patient did have blood work completed, CT brain, and telestroke was also notified. I did speak with the on-call telemetry stroke neurologist who agreed to further evaluate and treat patient. Patient's blood work is fairly unremarkable. CT brain did show a remote left lacunar cerebellar infarct which was old. Patient's no acute abnormalities. I did speak with the neurologist who said that they did have a discussion about administering TPA and the patient declined after discussion of risks and benefits. The neurologist agree this was likely related to a complicated migraine. Upon reassessment the patient was feeling much improved. I discussed that it would be important have her follow-up with a neurologist or headache specialist given her neurologic symptoms that coincided with her headache. The patient no longer had any deficits the patient had full use of her bilateral upper and lower extremities and had no numbness. I did discuss the patient's case with the on-call neurologist in order to obtain follow-up. Patient will be seen in clinic and an appointment will be arranged. He did recommend starting on a baby aspirin. This was conveyed to the patient. Patient was given strict follow-up, discharge, and return precautions. All questions were answered. Patient was deemed suitable for outpatient follow-up at this time. Patient agreed with the plan of care and was safely discharged home. Medication Reconcilliation Current Medication List: was personally reviewed by me Blood Pressure Screening Patient's blood pressure: Normal blood pressure Consults Time Called: 1631 Consulting Physician: Dr. Amirah Johnson [facility] Returned Call: [phone] I discussed the case again with Dr. Macario following his evaluation. He states no TPA as he discussed the risks/benefits with the patient and she declines treatment. This is likely a complex migraine and can go home once she feels better. Additional Consults: Time Called: 1820 Consulted Physician: Dr. Frederick - Neurology. Returned Call: [phone] Additional Comments: I discussed the case with Dr. Frederick - Neurology. He will follow-up with the patient in the clinic. He also suggest starting the patient on Baby Aspirin. Impression Primary Impression: Complicated migraine Critical Care I have personally spent greater than 50 minutes of critical care time in the direct management of this patient. This includes bedside care, interpretation of diagnostic studies, and testing, discussion with consultants, patient, and family members, and other required patient management activities. This 50 minutes is in excess of all separately billable procedures. Scribe Attestation The scribe's documentation has been prepared under my direction and personally reviewed by me in its entirety. I confirm that the note above accurately reflects all work, treatment, procedures, and medical decision making performed by me. Departure Information Dispostion Home / Self-Care Prescriptions No Active Prescriptions or Reported Meds Referrals Marina Wasserman M.D. (PCP) Arnel Frederick M.D. Patient Instructions ED Headache Migraine, My [facility] Additional Instructions Please return to the emergency department if you have worsening or recurrent symptoms not amenable to at-home treatment. Please call for a follow-up appointment with her primary care physician. Please take your medications as prescribed. If you have other concerns and/or complaints please feel free to also call your primary care physician's office or return the ED for further evaluation, management, and treatment. You were found to have an elevated blood pressure today (>120 sytolic or >90 diastolic). Per medicare guidelines, you need to follow up with this blood pressure screening with your Primary Care Physician (PCP). For a new PCP call [phone]. You may take 600 mg Ibuprofen every 6 hours as needed for pain with food for no more than 2 consecutive days. You may take tylenol 1000 mg every 6 hours as needed for pain. You may take motrin and tylenol separately or at the same time. Please start taking a baby aspirin. Please keep your follow-up appointment with your neurologist. Take your medications as prescribed. If taking an antibiotic consider taking a probiotic and/or eating yogurt, but at the least, please take with food as it can cause upset stomach. If culture results are not available at discharge, if they are positive for concern of infection, you will be informed of the results as soon as they are available. If you were seen between 11pm and 7AM all radiology reads will be re-read by our in house staff. If any major discrepancies are discovered, you will be notified. You have been examined and treated today on an emergency basis only. This is not a substitute for, or an effort to provide, complete comprehensive medical care. It is impossible to recognize and treat all injuries or illnesses in a single emergency department visit. It is therefore important that you follow up closely with [facility], your PCP, and/or your specialist(s). Call as soon as possible for an appointment. Thank you for your time and consideration. I look forward to speaking with you again soon. Please don't hesitate to call us if you have any questions. Stroke History Time Last Known Well 1315 today, 3 hours [employer] Stroke t-PA Criteria Reviewed Meets criteria for t-PA Reason t-PA Not Given Refusal of tx by patient
[2018-01-24 19:06] VITALS: BP 124/80; PULSE 77; O2SAT 98
== END 2018-01-24 19:04 | disposition home or self-care (01) ==
LOC: C.EDB 16:00 → C.EDC 19:04
DX: G43.109 Migraine with aura, not intractable, without status migrainosus (principal); M48.061 Spinal stenosis, lumbar region without neurogenic claudication; Z83.3 Family history of diabetes mellitus; Z88.0 Allergy status to penicillin; Z88.1 Allergy status to other antibiotic agents

== ENCOUNTER → 2018-03-07 | Outpatient (CLI) | payer BC ==
[~2018-03-07] MED LIST changes: -DICL50TA3 PO; +GADAVIST IV PRN; -MAGN400T6 PO; -TOPI50TA16 PO; -TRAM-10 PO
--- NOTE | 2018-03-07 13:18 | DIAGNOSTIC IMAGING REPORT ---
BRAIN COMBO HISTORY: 47 years-old Female R29.90 Stroke-like [id number] acute strokelike symptoms with migraine headaches COMPARISON: Head CT 01/24/2018, brain MRI 05/08/2006 TECHNIQUE: Multiplanar multisequence MRI of the brain was obtained both with and without the use of 10 amount Gadavist FINDINGS: Large [id number] food cashier localizer images demonstrate no gross abnormality. The midline structures including the corpus callosum, brainstem, optic chiasm, pituitary and pineal glands are unremarkable in the sagittal T1 series. There is no cerebellar tonsillar herniation. Imaged cervical spine is unremarkable. There is no restricted diffusion to suggest acute or subacute infarction. Major flow voids at the level of the skull base appear patent. Orbits are symmetric and within normal limits. Mastoid air cells are clear. Paranasal sinuses are also generally clear. The soft tissues and skull appear unremarkable. There is no acute intracranial hemorrhage, midline shift, abnormal extra-axial collections, hydrocephalus or intracranial mass. Several sequences are motion degraded. Minimal T2/FLAIR hyperintensities are seen within the subcortical and periventricular white matter of the bilateral cerebral hemispheres. These are likely of no clinical significance. There is no abnormal intra-axial or extra-axial enhancement identified. T2 hyperintense 10 mm structure adjacent to the tentorium along the superior aspect of the left cerebellum follows CSF signal on all sequences may reflect a small arachnoid cyst interdigitating between the cerebellar folia. No increased signal on the FLAIR images. IMPRESSION: 1. No acute intracranial abnormality or abnormal enhancement. 2. A few scattered areas of T2/FLAIR prolongation within the subcortical and periventricular white matter of the cerebral hemispheres bilaterally are indeterminate and may reflect early chronic microvascular ischemic changes or gliosis from chronic migraines among other etiologies. The above report was generated using voice recognition software. It may contain grammatical, syntax or spelling errors. Electronically signed by: Dom Rod M.D. 03/07/2018 1:17 PM Dictated Date/Time: 03/07/2018 1:09 PM
--- NOTE | 2018-03-07 13:58 | DIAGNOSTIC IMAGING REPORT ---
BILATERAL CAROTID DOPPLER STUDY HISTORY: STROKE LIKE SYMPTOMS COMPARISON: None. TECHNIQUE: Real-time, grayscale, and color Doppler sonography of the carotid arteries was performed. Imaging reviewed in the transverse and longitudinal planes. All measurements were calculated based on NASCET criteria. FINDINGS: Antegrade flow is seen in the bilateral vertebral arteries. The brachial pressures are hemodynamically similar. No significant calcified plaque. A single mildly enlarged left cervical lymph node measuring 2.4 x 0.8 cm. The peak systolic velocity within the right ICA is 60 cm/s. The right systolic ratio is 0.6. The peak systolic velocity within the left ICA is 66 cm/s. The left systolic ratio is 0.8. IMPRESSION: No hemodynamically significant stenosis seen within the carotid arteries. A single mildly enlarged left cervical lymph node. Electronically signed by: Jose Tatum M.D. 03/07/2018 1:57 PM Dictated Date/Time: 03/07/2018 1:54 PM
--- NOTE | 2018-03-08 22:15 | ECHOCARDIOGRAM REPORT ---
*NOTICE TO RECEIVING [employer] This information is strictly Confidential and protected under [place] law. [place] law prohibits you from making any further disclosure of this information unless further disclosure is expressly permitted by the written consent of the person to whom it pertains or is authorized by law. A general authorization for the release of medical or other information is not sufficient for this purpose. Hospital accepts no responsibility if the information is made available to any other person, INCLUDING THE PATIENT. Interpretation Summary * Name: EMILY GOOD Study Date: 03/07/2018 12:54 PM BP: 116/70 mmHg * Patient Location: [facility] HR: 88 * : 1970 (M/d/yyyy) Gender: Female Height: 65 in * Age: 47 yrs Ethnicity: CA Weight: 238 lb * Performed By: Pebbles Hernandez RDCS * * Reason For Study: STROKE-LIKE SYMPTOMS * BSA: 2.1 m2 * -- Conclusions -- * 1. Normal left ventricular size and systolic function. EF 55-60%. No regional wall motion abnormalities. No left ventricular hypertrophy. Type 1 diastolic dysfunction. * 2. There is a large right to left inter atrial shunt following agitated saline injection, suggesting possible ASD or significant PFO. Transesophageal echo may allow for better visual inspection. * 3. No significant valvular abnormalities visualized. * 4. Normal estimated right ventricular systolic pressure. * 5. No prior study available for comparison. Procedure Details * A saline contrast injection was performed to assess for cardiac shunting. * The injection was performed through an intravenous line in the right arm. * The attending nurse who injected the saline contrast was ROLAND FUENTES RN. * A total of 10 cc of agitated saline was given. Left Ventricle * Normal left ventricular size and systolic function. EF 55-60%. No regional wall motion abnormalities. No left ventricular hypertrophy. Type 1 diastolic dysfunction. Right Ventricle * The right ventricle is normal in size and function. * The right ventricular systolic function is normal as assessed by tricuspid annular plane systolic excursion (TAPSE) (normal >1.5 cm). Atria * The left atrial size is normal. * Right atrial size is normal. * There is no definite ASD or PFO seen on 2D imaging however suboptimal imaging for 2D inspection. There appears to be a large right to left inter atrial shunt following agitated saline injection, suggesting possible ASD or significant PFO. Mitral Valve * The mitral valve is grossly normal. * There is no mitral valve stenosis. * There is trace mitral regurgitation. Tricuspid Valve * The tricuspid valve is not well visualized, but is grossly normal. * There is no tricuspid stenosis. * There is trace tricuspid regurgitation. Aortic Valve * The aortic valve is trileaflet. * No hemodynamically significant valvular aortic stenosis. * Trace aortic regurgitation. Pulmonic Valve * The pulmonary valve is inadequately visualized, but the Doppler data is adequate for interpretation. * There is no pulmonic valvular stenosis. * There is no significant pulmonary regurgitation. Great Vessels * The aortic root is normal size. Pericardium/Pleural * There is no pericardial effusion. Great Vessels * Normal inferior vena cava size and collapsability with sniff indicates a normal right atrial pressure of 3 mmHg MMode 2D Measurements and Calculations IVSd 1.1 cm IVSs 1.1 cm LVIDd 3.8 cm LVIDs 2.3 cm LVPWd 0.92 cm LVPWs 1.9 cm IVS/LVPW 1.2 FS 38.8 % EDV(Teich) 62.1 ml ESV(Teich) 18.7 ml EF(Teich) 69.9 % EDV(cubed) 55.1 ml ESV(cubed) 12.6 ml EF(cubed) 77.1 % % IVS thick -1.04 % % LVPW thick 109.1 % LV mass(C)d 122.1 grams LV mass(C)dI 57.3 grams/m\S\2 LV mass(C)s 118.9 grams LV mass(C)sI 55.8 grams/m\S\2 SV(Teich) 43.5 ml SI(Teich) 20.4 ml/m\S\2 SV(cubed) 42.5 ml SI(cubed) 19.9 ml/m\S\2 Ao root diam 3.1 cm Ao root area 7.7 cm\S\2 LA dimension 3.3 cm LA/Ao 1.0 LVAd ap4 31.7 cm\S\2 LVLd ap4 9.1 cm EDV(MOD-sp4) 91.6 ml EDV(sp4-el) 93.7 ml LVAs ap4 18.0 cm\S\2 LVLs ap4 7.2 cm ESV(MOD-sp4) 39.0 ml ESV(sp4-el) 38.6 ml EF(MOD-sp4) 57.4 % EF(sp4-el) 58.8 % SV(MOD-sp4) 52.6 ml SI(MOD-sp4) 24.7 ml/m\S\2 SV(sp4-el) 55.1 ml SI(sp4-el) 25.9 ml/m\S\2 Doppler Measurements and Calculations MV E max federico 58.7 cm/sec MV A max federico 78.9 cm/sec MV E/A 0.74 MV dec time 0.31 sec Ao V2 max 125.8 cm/sec Ao max PG 6.3 mmHg Ao max PG (full) 3.3 mmHg AI max federico 444.9 cm/sec AI max PG 79.2 mmHg AI dec slope 252.2 cm/sec\S\2 AI P1/2t 516.7 msec LV V1 max PG 3.0 mmHg LV V1 max 86.5 cm/sec TR max federico 205.8 cm/sec RVSP(TR) 19.9 mmHg RAP systole 3.0 mmHg
== END | disposition home or self-care (01) ==
LOC: C.MRI 11:53
PROVIDERS: ATTEND Psychiatry & Neurology Neurology
DX: R29.90 Unspecified symptoms and signs involving the nervous system (principal); R59.0 Localized enlarged lymph nodes